=== PATIENT | male | born 1980 | race Caucasian/White ===

== ENCOUNTER 2022-11-11 18:45 | Emergency (ER) | payer SELFPAY ==
[~2022-11-11] VITALS: Ht 175.3 cm; Wt 74.8 kg
[2022-11-11 19:02] VITALS: BP 121/83
--- NOTE | 2022-11-11 19:05 | NUR ---
Ryan bautista in ED - 11/11/22 at 1919 by [id number] PT AMBULATED TO [facility]
[2022-11-11 19:20] VITALS: BP 132/87
--- NOTE | 2022-11-11 19:23 | NUR ---
TO LOBBY A/W BED AMBULATORY
[2022-11-11 20:08] LABS: APPEARANCE,URINE CLEAR (CLEAR); BILIRUBIN,URINE NEGATIVE (NEGATIVE); BLOOD, URINE NEGATIVE (NEGATIVE); COLOR,URINE YELLOW (YELLOW); LEUKOCYTE ESTERASE ,URINE NEGATIVE (NEGATIVE); NITRITE, URINE NEGATIVE (NEGATIVE); UGLUCOSE NEGATIVE (NEGATIVE)
[2022-11-11 20:25] LABS: BASOPHILS % (AUTO) 0.2 % (0.0-2.0); EOSINOPHILS # (AUTO) 0.1 K/uL (0-0.4); EOSINOPHILS % (AUTO) 1.3 % (0.0-4.0); HEMATOCRIT 44.4 % (36-52); HEMOGLOBIN 15.2 g/dL (12.0-18.0); LYMPHOCYTES % (AUTO) 13.1 % (20.5-51.1); MEAN CORPUSCULAR HEMOGLOBIN 32 pg (27-31); MEAN CORPUSCULAR HGB CONC 34 g/dL (33-37); MEAN CORPUSCULAR VOLUME 93.1 fL (80-94); MONOCYTES # (AUTO) 0.8 K/uL (0.8-1.0); MONOCYTES % (AUTO) 10.6 % (1.7-9.3); NEUTROPHILS # (AUTO) 5.7 K/uL (1.8-7.7); NEUTROPHILS % (AUTO) 74.8 % (42.2-75.2); PLATELET COUNT (AUTO) 346 K/uL (140-450); RED BLOOD CELL COUNT(AUTO) 4.77 MIL/uL (4.20-6.10); RED CELL DISTRIBUTION WIDTH 13.2 % (11.6-13.7); WHITE BLOOD COUNT (AUTO) 7.6 K/uL (4.8-10.8)
[2022-11-11 20:55] LABS: ALBUMIN 3.9 g/dL (3.4-5.0); ANION GAP 15.2 (8-16); CARBON DIOXIDE 26.5 mmol/L (21-32); POTASSIUM 3.7 mmol/L (3.5-5.1); TOTAL BILIRUBIN 0.3 mg/dL (0.0-1.0)
--- NOTE | 2022-11-11 21:27 | NUR ---
PT TAKEN TO [facility]
--- NOTE | 2022-11-11 21:55 | NUR ---
PT TAKEN TO BED #4
--- NOTE | 2022-11-11 22:00 | NUR ---
Patient A/Ox4, chest rise and fall symmetrical, resting in bed with eyes closed, no s/s of distress.
[2022-11-12] MEDS ORDERED: MAG-27 PO (00:32)
[2022-11-12 00:47] VITALS: BP 126/78
--- NOTE | 2022-11-12 00:47 | NUR ---
Patient discharged with v/s stable. Written and verbal after care instructions given and explained. Patient alert, oriented and verbalized understanding of instructions. Ambulatory with steady gait. All questions addressed prior to discharge. ID band removed. Patient advised to follow up with PMD. Rx of MYLANTA given. Patient educated on indication of medication including possible reaction and side effects. Opportunity to ask questions provided and answered.
== END 2022-11-12 00:47 | disposition home or self-care (01) ==
LOC: MED 18:45
DX: R10.10 Upper abdominal pain, unspecified (principal); F17.210 Nicotine dependence, cigarettes, uncomplicated; Z79.899 Other long term (current) drug therapy
CPT/HCPCS: 36415; 80053; 81003; 83690; 85025; 99284

== ENCOUNTER 2024-05-08 16:45 | Emergency (ER) | payer SELFPAY ==
[~2024-05-08] VITALS: Ht 175.3 cm; Wt 58.6 kg
[~2024-05-08 16:45] MED LIST: MAG-27 PO
[2024-05-08 16:58] VITALS: BP 114/74; PULSE 98; RESP 18; TEMP 98.1; O2SAT 100
== END 2024-05-08 17:00 | disposition home or self-care (01) ==
LOC: MED 16:45
DX: S39.81XD Other specified injuries of abdomen, subsequent encounter (principal); Z48.00 Encounter for change or removal of nonsurgical wound dressing; Z48.02 Encounter for removal of sutures; Z79.899 Other long term (current) drug therapy; X58.XXXD Exposure to other specified factors, subsequent encounter
CPT/HCPCS: 99281

== ENCOUNTER 2024-05-11 14:16 | Inpatient (IN) | payer MEDICAID ==
[~2024-05-11] VITALS: Ht 175.3 cm; Wt 61.7 kg
[2024-05-11 14:36] VITALS: BP 120/72; PULSE 98; RESP 18; TEMP 98.4; O2SAT 99
[2024-05-11] MEDS: KETOROLAC 30 MG/ML VIAL IVP ONE (15:11)
[2024-05-11 15:21] LABS: BASOPHILS # (AUTO) 0.1 K/uL (0.00-0.22); BASOPHILS % (AUTO) 0.5 % (0.0-2.0); EOSINOPHILS # (AUTO) 0.4 K/uL (0-0.4); EOSINOPHILS % (AUTO) 3.5 % (0.0-4.0); HEMATOCRIT 38.2 % (36-52); HEMOGLOBIN 13.1 g/dL (12.0-18.0); LYMPHOCYTES # (AUTO) 1.6 K/uL (2.0-11.5); LYMPHOCYTES % (AUTO) 13.9 % (20.5-51.1); MEAN CORPUSCULAR HEMOGLOBIN 31 pg (27-31); MEAN CORPUSCULAR HGB CONC 34 g/dL (33-37); MEAN CORPUSCULAR VOLUME 91.5 fL (80-94); MONOCYTES # (AUTO) 0.8 K/uL (0.8-1.0); MONOCYTES % (AUTO) 7.4 % (1.7-9.3); NEUTROPHILS # (AUTO) 8.4 K/uL (1.8-7.7); NEUTROPHILS % (AUTO) 74.7 % (42.2-75.2); PLATELET COUNT (AUTO) 756 K/uL (140-450); RED BLOOD CELL COUNT(AUTO) 4.18 MIL/uL (4.20-6.10); WHITE BLOOD COUNT (AUTO) 11.3 K/uL (4.8-10.8)
[2024-05-11] MEDS: NACL 0.9% 1,000 ML IV SCH (15:30)
[2024-05-11 15:36] LABS: ANION GAP 11.6 (8-16); CALCIUM 8.9 mg/dL (8.5-10.1); CARBON DIOXIDE 28.5 mmol/L (21-32); POTASSIUM 4.1 mmol/L (3.5-5.1)
[2024-05-11 15:39] LABS: ALBUMIN 3.2 g/dL (3.4-5.0); BILIRUBIN,DIRECT 0.1 mg/dL (0.0-0.3); TOTAL BILIRUBIN 0.2 mg/dL (0.0-1.0); TOTAL PROTEIN, SERUM 7.2 g/dL (6.4-8.2)
[2024-05-11] MEDS ORDERED: cefTRIAXone 1,000 MG VIAL ONE (15:47)
[2024-05-11] MEDS: cefTRIAXone 1,000 MG in DEXT 5% MINI-BAG PLUS 50 ML IV ONE (16:15)
[2024-05-11] MEDS ORDERED: ONDANSETRON 4 MG/2 ML VIAL IVP PRN ×2 (17:10→19:15)
[2024-05-11] MEDS: DEXT 5% /NACL 0.9% 1,000 ML IV SCH (17:55)
[2024-05-11] MEDS ORDERED: SUCCINYLCHOLINE CHLORIDE 200 MG/10 ML VIAL IVP ONE (18:10)
[2024-05-11] MEDS ORDERED: SEVOFLURANE 250 ML BTL INH ONE (18:10)
[2024-05-11] MEDS ORDERED: MEPERIDINE 25 MG/ML SYR IVP PRN (19:15)
[2024-05-11] MEDS ORDERED: HYDROmorphone 1 MG/ML AMP IVP PRN (19:15)
[2024-05-11 20:12] VITALS: BP 119/89; PULSE 63; RESP 18; TEMP 96.9; O2SAT 100
[2024-05-11] MEDS: fentaNYL citrate 0.05 MG/ML VIAL ONE (21:32)
[2024-05-11] MEDS: PROPOFOL 200 MG/20 ML VIAL IV ONE (21:33)
[2024-05-11] MEDS: METOCLOPRAMIDE 10 MG/2 ML INJ VIAL ONE (21:33)
[2024-05-11] MEDS: BUPIVACAINE-MPF 0.25% 30 ML VIAL INJ ONE (21:33)
[2024-05-11] MEDS: KETOROLAC 30 MG/ML VIAL ONE (21:34)
[2024-05-11] MEDS: ONDANSETRON 4 MG/2 ML VIAL ONE (21:34)
[2024-05-11] MEDS: LACTATED RINGERS 1,000 ML IV SCH (21:43)
[2024-05-11] MEDS: PIPERACILLIN/TAZOBACTAM 3.375 GM in DEXTROSE 5% 50 ML IV SCH (21:49)
[2024-05-11] MEDS: PIPERACILLIN/TAZOBACTAM 3.375 GM VIAL IV ONE (21:49)
[2024-05-12 04:00] VITALS: BP 121/89; PULSE 64; RESP 18; TEMP 97; O2SAT 100
[2024-05-12] MEDS: PIPERACILLIN/TAZOBACTAM 3.375 GM VIAL IV ONE (05:15)
[2024-05-12 05:52] LABS: BASOPHILS # (AUTO) 0.1 K/uL (0.00-0.22); BASOPHILS % (AUTO) 0.6 % (0.0-2.0); EOSINOPHILS # (AUTO) 0.3 K/uL (0-0.4); EOSINOPHILS % (AUTO) 2.5 % (0.0-4.0); HEMATOCRIT 33.9 % (36-52); HEMOGLOBIN 11.7 g/dL (12.0-18.0); LYMPHOCYTES # (AUTO) 1.4 K/uL (2.0-11.5); LYMPHOCYTES % (AUTO) 10.9 % (20.5-51.1); MEAN CORPUSCULAR HEMOGLOBIN 31 pg (27-31); MEAN CORPUSCULAR HGB CONC 34 g/dL (33-37); MONOCYTES # (AUTO) 0.8 K/uL (0.8-1.0); MONOCYTES % (AUTO) 6.4 % (1.7-9.3); NEUTROPHILS # (AUTO) 10.3 K/uL (1.8-7.7); NEUTROPHILS % (AUTO) 79.6 % (42.2-75.2); PLATELET COUNT (AUTO) 646 K/uL (140-450); RED BLOOD CELL COUNT(AUTO) 3.73 MIL/uL (4.20-6.10); RED CELL DISTRIBUTION WIDTH 13.8 % (11.6-13.7); WHITE BLOOD COUNT (AUTO) 12.9 K/uL (4.8-10.8)
[2024-05-12 06:11] LABS: ANION GAP 10.5 (8-16); CARBON DIOXIDE 27.2 mmol/L (21-32); CREATININE 0.9 mg/dL (0.6-1.3); POTASSIUM 3.7 mmol/L (3.5-5.1)
[2024-05-12 08:00] VITALS: BP 127/70; PULSE 64; PULSE 84; RESP 18; TEMP 97.8; O2SAT 100; O2SAT 99
[2024-05-12] MEDS: MORPHINE SULFATE 2 MG/ML SYR IVP PRN (12:16)
[2024-05-12 12:26] VITALS: BP 127/70; PULSE 84; RESP 18; TEMP 98.1; O2SAT 100
[2024-05-12] MEDS ORDERED: CEPH-588 PO (13:18)
[2024-05-12] MEDS ORDERED: [UNRECOGNIZED DRUG - CODE] PO (13:20)
[2024-05-12 16:00] VITALS: BP 136/62; PULSE 71; RESP 18; TEMP 97.9; O2SAT 97
[2024-05-12] MEDS: ACETAMINOPHEN 325 MG TAB PO PRN (21:14)
[2024-05-12 21:20] VITALS: BP 113/73; PULSE 80; RESP 18; TEMP 96.8; O2SAT 100
[2024-05-13 00:03] VITALS: BP 114/66; PULSE 84; RESP 18; TEMP 97.3; O2SAT 99
[2024-05-13 04:02] VITALS: BP 99/70; PULSE 73; RESP 16; TEMP 96.3; O2SAT 100
[2024-05-13 05:44] LABS: BASOPHILS # (AUTO) 0.1 K/uL (0.00-0.22); BASOPHILS % (AUTO) 0.9 % (0.0-2.0); EOSINOPHILS # (AUTO) 0.3 K/uL (0-0.4); EOSINOPHILS % (AUTO) 3.3 % (0.0-4.0); HEMATOCRIT 35.6 % (36-52); HEMOGLOBIN 12.2 g/dL (12.0-18.0); LYMPHOCYTES % (AUTO) 19.9 % (20.5-51.1); MEAN CORPUSCULAR HEMOGLOBIN 31 pg (27-31); MEAN CORPUSCULAR HGB CONC 34 g/dL (33-37); MEAN CORPUSCULAR VOLUME 90.5 fL (80-94); MONOCYTES # (AUTO) 0.8 K/uL (0.8-1.0); MONOCYTES % (AUTO) 8.5 % (1.7-9.3); NEUTROPHILS # (AUTO) 6.6 K/uL (1.8-7.7); NEUTROPHILS % (AUTO) 67.4 % (42.2-75.2); PLATELET COUNT (AUTO) 727 K/uL (140-450); RED BLOOD CELL COUNT(AUTO) 3.94 MIL/uL (4.20-6.10); RED CELL DISTRIBUTION WIDTH 13.6 % (11.6-13.7); WHITE BLOOD COUNT (AUTO) 9.8 K/uL (4.8-10.8)
[2024-05-13 06:30] LABS: ANION GAP 11.8 (8-16); CALCIUM 8.5 mg/dL (8.5-10.1); CARBON DIOXIDE 27.2 mmol/L (21-32); CREATININE 0.8 mg/dL (0.6-1.3)
[2024-05-13 08:00] VITALS: BP 100/70; PULSE 100; PULSE 70; RESP 18; TEMP 97.1; O2SAT 100; O2SAT 98
[2024-05-13] MEDS: HYDROcodone/APAP 5/325 MG 1 TAB TAB PO PRN (11:48)
[2024-05-13 16:00] VITALS: BP 120/68; PULSE 84; RESP 18; TEMP 97.5; O2SAT 99
[2024-05-13 20:00] VITALS: BP 106/66; PULSE 87; RESP 18; TEMP 97.9; O2SAT 97
[2024-05-14 04:00] VITALS: BP 108/68; PULSE 60; RESP 18; TEMP 97.2; O2SAT 99
[2024-05-14 08:00] VITALS: PULSE 67; RESP 18; O2SAT 100
[2024-05-14 11:19] VITALS: BP 108/68; PULSE 67; RESP 18; TEMP 97.2
[2024-05-14 11:49] VITALS: BP_SYST 101; BP_SYST 108; BP_SYST 97; BP_DIAS 55; BP_DIAS 66; BP_DIAS 68; PULSE 67; PULSE 80; RESP 18; TEMP 97.2; TEMP 98.1; TEMP 99.1
[2024-05-14 12:00] VITALS: BP 101/66; PULSE 67; RESP 18; TEMP 98.1; O2SAT 100
[2024-05-14] MEDS ORDERED: NON ADHERENT DRESSING TP PRN (12:20)
[2024-05-14] MEDS: NON ADHERENT DRESSING TP SCH (12:56)
== END 2024-05-14 18:30 | disposition home or self-care (01) | DRG 793 ==
LOC: MED 14:16 → MTU 17:14 → MMU 20:14
PROVIDERS: ADMIT Internal Medicine; ATTEND Internal Medicine
PROC: 0W9G0ZZ Drainage of Peritoneal Cavity, Open Approach (ICD-10-PCS; principal; 2024-05-11 17:30)
DX: M96.842 Postprocedural seroma of a musculoskeletal structure following a musculoskeletal system procedure (principal); Z79.899 Other long term (current) drug therapy
CPT/HCPCS: 36415; 71045; 80048; 80076; 83605; 83690; 85025; 87040; 87070; 87075; 87205; 96361; 96365; 96375; 99285; J0330; J0696; J1885; J2270; J2405; J2543; J2704; J2765; J3010; J3490; J7060; Q9967

== ENCOUNTER 2024-05-23 17:34 | Emergency (ER) | payer MEDICAID ==
[~2024-05-23] VITALS: Ht 175.3 cm; Wt 59.9 kg
[~2024-05-23 17:34] MED LIST changes: +CEPH-588 PO; -MAG-27 PO; +[UNRECOGNIZED DRUG - CODE] PO
[2024-05-23 17:46] VITALS: BP 107/70; PULSE 90; RESP 16; O2SAT 100
[2024-05-23] MEDS ORDERED: CEPH-588 PO (18:42)
[2024-05-23] MEDS ORDERED: ACET-10509 PO (18:42)
[2024-05-23] MEDS ORDERED: BACITRACIN OINT 500 UNITS/GM PKT TP ONE (18:56)
[2024-05-23] MEDS: ACETAMINOPHEN EXTRA STRENGTH 500 MG TAB PO ONE (19:04)
[2024-05-23] MEDS: cephALEXin 500 MG CAP PO ONE (19:04)
== END 2024-05-23 19:45 | disposition home or self-care (01) ==
LOC: MED 17:34
DX: S31.112D Laceration without foreign body of abdominal wall, epigastric region without penetration into peritoneal cavity, subsequent encounter (principal); Z48.00 Encounter for change or removal of nonsurgical wound dressing; Z79.1 Long term (current) use of non-steroidal anti-inflammatories (NSAID); Z79.2 Long term (current) use of antibiotics; Z79.899 Other long term (current) drug therapy; Z59.00 Homelessness unspecified; X58.XXXD Exposure to other specified factors, subsequent encounter
CPT/HCPCS: 99283